=== PATIENT | male | born 1935 | race Caucasian/White ===

== ENCOUNTER → 2017-01-21 | Outpatient (CLI) | payer OTHER | LOC: BMCIMAGING 11:53 | PROVIDERS: ATTEND Physician Assistant | DX: G89.28 Other chronic postprocedural pain (principal); Z96.611 Presence of right artificial shoulder joint ==

== ENCOUNTER → 2017-07-15 | Outpatient (CLI) | payer OTHER | LOC: BMCIMAGING 10:54 | PROVIDERS: ATTEND Physician Assistant | DX: S83.011A Lateral subluxation of right patella, initial encounter (principal); M25.461 Effusion, right knee ==

== ENCOUNTER → 2017-08-14 | Outpatient (CLI) | payer OTHER ==
[~2017-08-14] MED LIST: IOPAMIDOL (ISOVUE-370) 150 ML BTL IV ONE; LIDOCAINE 1% 300 MG/30 ML SDV ONE
== END ==
LOC: FIMAGING 10:12
PROVIDERS: ATTEND Physician Assistant
PROC: 3E0U3KZ Introduction of Other Diagnostic Substance into Joints, Percutaneous Approach (ICD-10-PCS; principal; 2017-08-14)
DX: M22.41 Chondromalacia patellae, right knee (principal); M65.861 Other synovitis and tenosynovitis, right lower leg
CPT/HCPCS: 27370; 73580; 73701; Q9967

== ENCOUNTER → 2019-04-27 | Outpatient (CLI) | payer OTHER | LOC: BMCIMAGING 13:03 ==